=== PATIENT | female | born 1980 | race Caucasian/White ===

== ENCOUNTER 2018-03-05 16:40 | Emergency (ER) | payer OTHER ==
[~2018-03-05] VITALS: Ht 170.2 cm; Wt 68.0 kg
[2018-03-05 19:03] LABS: BASOPHILS % (AUTO) 0.6 % (0.0-2.0); EOSINOPHILS % (AUTO) 1.5 % (1.0-6.0); HEMATOCRIT 37.5 % (36-46); HEMOGLOBIN 12.9 g/dL (12.0-16.0); LYMPHOCYTES # (AUTO) 1.8 K/uL (1.0-4.8); MEAN CORPUSCULAR HGB CONC 34.4 G/dL (31.0-37.0); MEAN CORPUSCULAR VOLUME 93 fL (80-100); MONOCYTES # (AUTO) 0.3 K/uL (0.1-1.0); MONOCYTES % (AUTO) 4.4 % (2.0-9.0); NEUTROPHILS # (AUTO) 4.2 K/uL (1.8-7.7); NEUTROPHILS % (AUTO) 65.5 % (40.0-70.0); PLATELET COUNT (AUTO) 293 K/uL (150-450); RED BLOOD CELL COUNT(AUTO) 4.04 MIL/uL (4.00-5.20); RED CELL DISTRIBUTION WIDTH 13.3 % (11.5-14.5)
[2018-03-05] MEDS ORDERED: IBUPROFEN 600 MG TABLET PO ONE (21:00)
[2018-03-05 21:30] LABS: APPEARANCE,URINE TURBID (CLEAR); GLUCOSE, URINE (UA) NEGATIVE (NEGATIVE); KETONES,URINE 15 mg/dL (NEGATIVE); LEUKOCYTE ESTERASE ,URINE MODERATE (NEGATIVE); OCCULT BLOOD,URINE LARGE (NEGATIVE); PH,URINE 5.5 (5.0-8.0); PROTEIN,URINE SEE CONFIRM (NEGATIVE)
[2018-03-05 21:32] LABS: BILIRUBIN,URINE PRELIM. POSITIVE (NEGATIVE)
[2018-03-05 21:36] LABS: BACTERIA,URINE Few /HPF (None Seen); NITRATE,URINE NEGATIVE (NEGATIVE); RBC,URINE Full Field /HPF (0-2); SQUAMOUS EPITHELIAL CELL,UR Few /LPF (None Seen); SULFOSALICYLIC ACID,URINE 4+ (Negative)
[2018-03-05 21:56] VITALS: BP 121/64
== END 2018-03-05 22:01 | disposition home or self-care (01) ==
LOC: EMS 16:42
DX: N93.8 Other specified abnormal uterine and vaginal bleeding (principal); N39.0 Urinary tract infection, site not specified; N83.209 Unspecified ovarian cyst, unspecified side; F17.210 Nicotine dependence, cigarettes, uncomplicated
CPT/HCPCS: 76856; 87086; 99285